=== PATIENT | male | born 1945 | race Caucasian/White ===

== ENCOUNTER 2024-05-17 07:59 | Day surgery (SDC) | payer MEDICARE, OTHER ==
[~2024-05-17 07:59] MED LIST: LIDOCAINE 1% (10MG/ML) FOR IV START INTRADERMA PRN
[2024-05-17] MEDS: IV FLUID CONTINUATION 1,000 ML IV ONE ×2 (09:08→14:30)
[2024-05-17 09:12] LABS: Glucose,Whole Blood 85 mg/dL (70-110)
[2024-05-17] MEDS: ONDANSETRON 4 MG/2 ML VIAL IVP ONE (09:23)
[2024-05-17] MEDS: ACETAMINOPHEN TAB 500 MG TAB PO PRN (09:23)
[2024-05-17] MEDS: DEXAMETHASONE SOD PHOSPHATE 4 MG/ML 1 ML VIAL IV ONE (09:23)
[2024-05-17] MEDS: LACTATED RINGERS 1,000 ML IV SCH (09:23)
[2024-05-17 09:26] LABS: African American GFR (CKD) >90 (>60 ml/min/1.73 sqM); Anion Gap 6 mmol/L; Blood Urea Nitrogen 10 mg/dL (9-20); Calcium 9.2 mg/dL (8.4-10.2); Carbon Dioxide 26 mmol/L (22-30); Chloride 108 mmol/L (98-107); Glucose 82 mg/dL (74-99); Non-African American GFR(CKD) 84 (>60 ml/min/1.73 sqM); Sodium 140 mmol/L (137-145)
[2024-05-17] MEDS: MIDAZOLAM 2 MG/2 ML VIAL IV ONE (09:33)
[2024-05-17 09:48] LABS: Potassium 3.8 mmol/L (3.5-5.1)
--- NOTE | 2024-05-17 09:50 | P.ANPRN ---
Procedure Note - Anesthesia - Nerve Block Performed Bilateral Erector Spinae Single Time Out Performed: Yes Date of Procedure: 05/17/24 Procedure Start Time: :32 Procedure Stop Time: 09:37 Location of Patient: PreOp Indication: Acute Post-Operative Pain, Analgesia, Requested by Surgeon Sedation Type: Sedate with meaningful contact maintained Preparation: Sterile Prep Position: Prone Catheter: None Needle Types: Pajunk Needle Gauge: 21 Ultrasound used to visualize needle placement: Yes Ultrasound used to observe medication spread: Yes Injectate: 0.5% Ropivacaine (see comment for volume) (Ropiv 20ml+[id number] level--Each side.) Blood Aspirated: No Pain Paresthesia on Injection Noted: No Resistance on Injection: Normal Image Stored and Saved: Yes Events: Uneventful and Well Tolerated
[2024-05-17] MEDS: HEPARIN SODIUM,PORCINE 5,000 UNIT/ML 1 ML VIAL SQ PRN (09:56)
[2024-05-17] MEDS ORDERED: LIDOCAINE 1% INJ 10MG/ML (20 ML MDV) ONE (10:00)
[2024-05-17] MEDS ORDERED: PROPOFOL 10 MG/ML 20 ML VIAL IV ONE (10:00)
[2024-05-17] MEDS ORDERED: NEOSTIGMINE 1 MG/ML 10 ML VIAL ONE (10:00)
[2024-05-17] MEDS ORDERED: KETAMINE HCL IN 0.9 % NACL 50 MG/5 ML SYRINGE ONE (10:00)
[2024-05-17] MEDS ORDERED: ROPIVACAINE 5 MG/ML 30 ML VIAL ONE (10:00)
[2024-05-17] MEDS ORDERED: DEXAMETHASONE SOD PHOSPHATE 4 MG/ML 1 ML VIAL ONE (10:00)
[2024-05-17] MEDS ORDERED: ROCURONIUM 10 MG/ML (5 ML VIAL) IV ONE (10:00)
[2024-05-17] MEDS ORDERED: fentaNYL (PF) 50 MCG/ML 2 ML AMP ONE (10:00)
[2024-05-17] MEDS ORDERED: KETOROLAC 15 MG/ML 1 ML VIAL ONE (10:00)
[2024-05-17] MEDS ORDERED: GLYCOPYRROLATE 0.2 MG/ML 2 ML VIAL ONE (10:00)
[2024-05-17] MEDS ORDERED: SUCCINYLCHOLINE CHLORIDE 200 MG/10 ML VIAL IV ONE (10:00)
[2024-05-17] MEDS: LIDOCAINE 2%-EPI 1:100,000 20 ML VIAL SQ ONE (10:09)
[2024-05-17] MEDS: LACTATED RINGERS 1,000 ML IV ONE (10:49)
--- NOTE | 2024-05-17 11:00 | P.OP ---
Date of Procedure: 05/17/24 Preoperative Diagnosis: incarcerated ventral hernia Postoperative Diagnosis: Incarcerated ventral hernia Procedure(s) Performed: Laparoscopic robotic repair of incarcerated ventral hernia Transversus abdominis plane block. Anesthesia: MAC Surgeon: Edmund Vidales Estimated Blood Loss (ml): 5 Pathology: none sent Condition: stable Disposition: PACU Operative Findings: 5 cm incarcerated ventral hernia located approximately 4 cm above umbilicus Description of Procedure: The patient was placed on the operating table in the supine position. He received general anesthesia. His abdomen was prepped and draped usual fashion. Using a 5 mm optical trocar under direct visualization the peritoneal cavity was entered in the left upper quadrant. The abdomen was then insufflated. The laparoscope was placed back into the perineal cavity. Next a 8 mm robotic trocar was placed in the left lower quadrant and a 12 mm robotic trocar was placed in the left lateral position. The original 5 mm trocar was exchanged for a 8 mm robotic trocar. A four-quadrant transversus abdominis plane block was performed 1% local Xylocaine. The patient's placed in the left side up position. And the patient was docked to the robot. The i control hernia was visualized. Using hook cautery the peritoneum over the incisional hernia was excised. The incarcerated mentum was reduced. The fascial opening was repaired using 0V LOC suture. Next a piece of 11 cm round ventral light ST mesh was placed into the. Cavity and secured with 2 OV lock suture. The patient was undocked the robot. The needles were retrieved. The fascia of the 12 mm trocar site was closed with 0 Ethibond suture. Skin was closed interrupted 3-0 Monocryl suture. Dermabond dressings was applied. Patient tolerated procedure well and was sent to recovery room stable condition.
[2024-05-17 11:12] VITALS: TEMP 97.4
[2024-05-17] MEDS: HYDROmorphone 0.5 MG/0.5 ML SYRINGE IVP PRN (11:15)
[2024-05-17 11:22] LABS: Glucose,Whole Blood 96 mg/dL (70-110)
[2024-05-17] MEDS: ACETAMINOPHEN TAB 325 MG TAB PO STA (12:52)
[2024-05-17] MEDS ORDERED: LACTATED RINGERS 1,000 ML BAG IV STA (14:17)
[2024-05-17 15:59] VITALS: BP 169/70; PULSE 58; RESP 20
== END 2024-05-17 16:01 | disposition home or self-care (01) ==
LOC: OR 07:59
PROVIDERS: ATTEND Surgery
DX: K43.6 Other and unspecified ventral hernia with obstruction, without gangrene (principal); G89.18 Other acute postprocedural pain; I25.2 Old myocardial infarction; I10 Essential (primary) hypertension; E78.5 Hyperlipidemia, unspecified; I25.10 Atherosclerotic heart disease of native coronary artery without angina pectoris; G47.33 Obstructive sleep apnea (adult) (pediatric); E11.9 Type 2 diabetes mellitus without complications; E07.9 Disorder of thyroid, unspecified; M19.90 Unspecified osteoarthritis, unspecified site; F41.9 Anxiety disorder, unspecified; F32.A Depression, unspecified; F03.90 Unspecified dementia, unspecified severity, without behavioral disturbance, psychotic disturbance, mood disturbance, and anxiety; Z85.038 Personal history of other malignant neoplasm of large intestine; Z99.89 Dependence on other enabling machines and devices; Z95.5 Presence of coronary angioplasty implant and graft; Z86.73 Personal history of transient ischemic attack (TIA), and cerebral infarction without residual deficits; Z79.4 Long term (current) use of insulin; Z90.49 Acquired absence of other specified parts of digestive tract; Z98.890 Other specified postprocedural states
CPT/HCPCS: 49594; S2900; 64999; 80048

== ENCOUNTER 2024-05-31 06:45 | Day surgery (SDC) | payer OTHER ==
[2024-05-25 11:14] VITALS: BMI 33.3
[2024-05-31] MEDS ORDERED: MIDAZOLAM 2 MG/2 ML VIAL IV PRN (07:00)
--- NOTE | 2024-05-31 07:28 | P.GSHP ---
History of Present Illness H&P Date: 05/31/24 CHIEF COMPLAINT: Colon screen HISTORY OF PRESENT ILLNESS: The patient is a 79-year-old male who presents for colon screen. Lower endoscopy was offered for further evaluation and management. PAST MEDICAL HISTORY: Please see list. PAST SURGICAL HISTORY: Please see list. MEDICATIONS: Please see list. ALLERGIES: Please see list. SOCIAL HISTORY: No illicit drug use FAMILY HISTORY: No reports of Crohn disease or ulcerative colitis. REVIEW OF ORGAN SYSTEMS: CONSTITUTIONAL: No reports of fevers or chills. PHYSICAL EXAM: VITAL SIGNS: Stable GENERAL: Well-developed pleasant in no acute distress. HEENT: No scleral icterus. Extraocular movements grossly intact. Moist buccal mucosa. NECK: Supple without lymphadenopathy. CHEST: Unlabored respirations. Equal bilateral excursions. CARDIOVASCULAR: Regular rate and rhythm. Distal 2+ pulses. ABDOMEN: Soft, nontender, nondistended. MUSCULOSKELETAL: No clubbing, cyanosis, or edema. ASSESSMENT: 1. Colon screen. PLAN: 1. Recommend proceeding with a lower endoscopy Past Medical History Past Medical History: Chest Pain / Angina, Dementia, Diabetes Mellitus, GERD/Reflux, Hyperlipidemia, Hypertension, Myocardial Infarction ([place]), Sleep Apnea/CPAP/BIPAP, Thyroid Disorder Additional Past Medical History / Comment(s): cpap doesn't use it Last Myocardial Infarction Date:: 2018 History of Any Multi-Drug Resistant Organisms: None Reported Past Surgical History: Back Surgery, Heart Catheterization With Stent, Hernia Repair, Tonsillectomy Additional Past Surgical History / Comment(s): thyroidectomy at 13, neck surgery, umbilical 2024, colonoscopy polyps, Past Anesthesia/Blood Transfusion Reactions: No Reported Reaction Additional Past Anesthesia/Blood Transfusion Reaction / Comment(s): no blood transfusion Date of Last Stent Placement:: 2018 Smoking Status: Former smoker - Past Family History Father History Unknown: Yes Medications and Allergies Home Medications Medication Instructions Recorded Confirmed Type Acetaminophen Tab [Tylenol] 650 mg PO Q6H #30 tab 05/17/24 05/25/24 Rx Aspirin [Adult Low Dose Aspirin EC] 81 mg PO DAILY 05/17/24 05/31/24 History Atorvastatin Calcium [Lipitor] 80 mg PO HS 05/17/24 05/25/24 History Clopidogrel [Plavix] 75 mg PO DAILY 05/17/24 05/31/24 History Docusate [Colace] 100 mg PO BID #20 capsule 05/17/24 05/25/24 Rx Donepezil HCl [Aricept ODT] 10 mg PO DAILY 05/17/24 05/25/24 History Empagliflozin/Metformin HCl 1 tab PO DAILY 05/17/24 05/25/24 History [Synjardy Xr 12.5-1,000 mg Tab] FLUoxetine HCL [PROzac] 10 mg PO DAILY 05/17/24 05/25/24 History Ferrous Sulfate [Feosol] 325 mg PO DAILY 05/17/24 05/25/24 History Furosemide [Lasix] 40 mg PO DAILY 05/17/24 05/25/24 History Gabapentin 300 mg PO BID 05/17/24 05/25/24 History Ibuprofen [Motrin] 600 mg PO Q6HR PRN #40 tab 05/17/24 05/25/24 Rx Insulin Glargine-Yfgn 44 units SQ HS 05/17/24 05/25/24 History Isosorbide Mononitrate [Isosorbide 30 mg PO DAILY 05/17/24 05/25/24 History Mononitrate ER] Levothyroxine Sodium [Synthroid] 125 mcg PO DAILY 05/17/24 05/25/24 History Losartan [Cozaar] 50 mg PO DAILY 05/17/24 05/25/24 History Pantoprazole Sodium [Protonix] 20 mg PO DAILY 05/17/24 05/25/24 History Potassium Chloride 60 meq PO DAILY 05/17/24 05/25/24 History allopurinoL [Zyloprim] 300 mg PO DAILY 05/17/24 05/25/24 History carvediloL [Coreg] 6.25 mg PO BID 05/17/24 05/25/24 History metOLazone [Zaroxolyn] 5 mg PO DIRECTED 05/17/24 05/25/24 History Allergies Allergy/AdvReac Type Severity Reaction Status Date / Time clarithromycin [From Biaxin] Allergy Swelling Verified 05/31/24 07:15 acetaminophen [From Tylox] AdvReac Unknown Verified 05/31/24 07:15 colestipol AdvReac Nausea & Verified 05/31/24 07:15 Vomiting gemfibrozil AdvReac Unknown Verified 05/31/24 07:15 morphine AdvReac Unknown Verified 05/31/24 07:15 oxycodone [From Tylox] AdvReac Unknown Verified 05/31/24 07:15 simvastatin [From Zocor] AdvReac Unknown Verified 05/31/24 07:15 sulfamethoxazole AdvReac Swelling Verified 05/31/24 07:15 [From Bactrim] trimethoprim [From Bactrim] AdvReac Swelling Verified 05/31/24 07:15
[2024-05-31 07:29] VITALS: RESP 16; TEMP 98.1
[2024-05-31] MEDS: LACTATED RINGERS 1,000 ML IV SCH (07:31)
[2024-05-31] MEDS: IV FLUID CONTINUATION 1,000 ML IV ONE (07:31)
[2024-05-31 07:32] LABS: Glucose,Whole Blood 79 mg/dL (70-110)
[2024-05-31] MEDS ORDERED: PROPOFOL 10 MG/ML 20 ML VIAL IV ONE (07:33)
[2024-05-31] MEDS ORDERED: LIDOCAINE 2% (PF) 20 MG/ML 5 ML VIAL ONE (07:33)
[2024-05-31] MEDS: LACTATED RINGERS 1,000 ML IV ONE (09:04)
[2024-05-31 09:16] LABS: Glucose,Whole Blood 80 mg/dL (70-110)
[2024-05-31 09:38] VITALS: BP 175/75; PULSE 49
--- NOTE | 2024-05-31 09:38 | P.PCN ---
Date of Procedure: 05/31/24 Description of Procedure: PREOPERATIVE DIAGNOSIS: Personal history of colon cancer Abnormal Cologuard POSTOPERATIVE DIAGNOSIS: Tubular adenomas hepatic flexure Tubular adenomas transverse colon Tubular adenomas ascending colon Tubular adenomas descending colon Tubular adenomas sigmoid colon OPERATION: Colonoscopy to the ileocecal valve and appendiceal orifice, cecum Colonoscopy with multiple hot snare polypectomy x 43 SURGEON: Jaelyn Horn MD. ANESTHESIA: MAC. INDICATIONS: The patient is an 79-year-old male who presents with personal history of colon cancer and now with positive Cologuard. Patient has dementia and medical records obtained per daughter. Benefits and risks were described and informed consent was obtained. DESCRIPTION OF PROCEDURE: The patient had undergone GoLytely prep. The patient had been brought into the operating room and laid in the left lateral decubitus position. After adequate intravenous sedation, the rectum was examined with 2% lidocaine jelly. The prostate was unremarkable. No external hemorrhoids were encountered. The rectal tone was within normal limits. No lesions were palpated in the rectal vault. An Olympus colonoscope was advanced until the cecum, ileocecal valve and appendiceal orifice were clearly viewed. The prep was good. No sigmoid diverticulosis was encountered. Multiple large villous including tubular adenomas were found and removed x 43. No focal colitis was found. Retroflexion of the scope demonstrated grade 1 internal hemorrhoids without active bleeding or inflammation. The colon was desufflated. The patient had tolerated the procedure well. Withdrawal time was over 6 minutes. FINDINGS: Aronchick preparation quality scale 2 (1-5) Internal hemorrhoids, grade 1 External hemorrhoids, grade 1. No arteriovenous malformations. No sigmoid diverticulosis Removal of 43 polyps: - Snare polypectomy ascending colon x 8, 5 to 12 mm tubulovillous adenoma. - Snare polypectomy hepatic flexure x 10, 4-14 mm flat villous adenoma - Snare polypectomy transverse colon x 24, 4 to 16 mm flat villous adenoma - Snare polypectomy descending colon x 6 with multiple foci near splenic flexure, 15 to 20 mm tubulovillous adenoma multiple passes - Snare polypectomy sigmoid colon x 3, 8 to 15 mm flat villous adenoma No focal colitis. RECOMMENDATIONS: Given severity of tubular adenomas, repeat colonoscopy 3 to 6 months, August to October 2024 Stop Plavix for at least 10 days due to multiple adenoma resection Plan - Discharge Summary Discharge Rx Participant: No New Discharge Prescriptions: Continue carvediloL [Coreg] 6.25 mg PO BID Furosemide [Lasix] 40 mg PO DAILY metOLazone [Zaroxolyn] 5 mg PO DIRECTED Pantoprazole Sodium [Protonix] 20 mg PO DAILY allopurinoL [Zyloprim] 300 mg PO DAILY Docusate [Colace] 100 mg PO BID #20 capsule Losartan [Cozaar] 50 mg PO DAILY Isosorbide Mononitrate [Isosorbide Mononitrate ER] 30 mg PO DAILY Aspirin [Adult Low Dose Aspirin EC] 81 mg PO DAILY Clopidogrel [Plavix] 75 mg PO DAILY Ferrous Sulfate [Iron (65 MG Elemental)] 325 mg PO DAILY Potassium Chloride 60 meq PO DAILY Levothyroxine Sodium [Synthroid] 125 mcg PO DAILY Atorvastatin Calcium [Lipitor] 80 mg PO HS Empagliflozin/Metformin HCl [Synjardy Xr 12.5-1,000 mg Tab] 1 tab PO DAILY Insulin Glargine-Yfgn 44 units SQ HS Donepezil HCl [Aricept ODT] 10 mg PO DAILY FLUoxetine HCL [PROzac] 10 mg PO DAILY Gabapentin 300 mg PO BID Acetaminophen Tab [Tylenol] 650 mg PO Q6H #30 tab Discontinued Ibuprofen [Motrin] 600 mg PO Q6HR PRN #40 tab PRN Reason: Pain Discharge Medication List Acetaminophen Tab [Tylenol] 650 mg PO Q6H #30 tab 05/17/24 [Rx] Aspirin [Adult Low Dose Aspirin EC] 81 mg PO DAILY 05/17/24 [History] Atorvastatin Calcium [Lipitor] 80 mg PO HS 05/17/24 [History] Clopidogrel [Plavix] 75 mg PO DAILY 05/17/24 [History] Docusate [Colace] 100 mg PO BID #20 capsule 05/17/24 [Rx] Donepezil HCl [Aricept ODT] 10 mg PO DAILY 05/17/24 [History] Empagliflozin/Metformin HCl [Synjardy Xr 12.5-1,000 mg Tab] 1 tab PO DAILY 05/17/24 [History] FLUoxetine HCL [PROzac] 10 mg PO DAILY 05/17/24 [History] Ferrous Sulfate [Iron (65 MG Elemental)] 325 mg PO DAILY 05/17/24 [History] Furosemide [Lasix] 40 mg PO DAILY 05/17/24 [History] Gabapentin 300 mg PO BID 05/17/24 [History] Insulin Glargine-Yfgn 44 units SQ HS 05/17/24 [History] Isosorbide Mononitrate [Isosorbide Mononitrate ER] 30 mg PO DAILY 05/17/24 [History] Levothyroxine Sodium [Synthroid] 125 mcg PO DAILY 05/17/24 [History] Losartan [Cozaar] 50 mg PO DAILY 05/17/24 [History] Pantoprazole Sodium [Protonix] 20 mg PO DAILY 05/17/24 [History] Potassium Chloride 60 meq PO DAILY 05/17/24 [History] allopurinoL [Zyloprim] 300 mg PO DAILY 05/17/24 [History] carvediloL [Coreg] 6.25 mg PO BID 05/17/24 [History] metOLazone [Zaroxolyn] 5 mg PO DIRECTED 05/17/24 [History] Follow up Appointment(s)/Referral(s): Jaelyn Horn MD [STAFF PHYSICIAN] - 06/13/24 3:00 pm Patient Instructions/Handouts: Colorectal Polyps (GEN) Activity/Diet/Wound Care/Special Instructions: Do not resume Plavix/clopidogrel until June 09. No sharp foods. Only soft foods. Avoid broccoli, nuts, etc. Will need repeat colonoscopy in 3 to 6 months by October 2024 Discharge Disposition: HOME SELF-CARE
== END 2024-05-31 10:02 | disposition home or self-care (01) ==
LOC: ORWHC2ENDO 06:45
PROVIDERS: ATTEND Surgery Plastic and Reconstructive Surgery
DX: D12.2 Benign neoplasm of ascending colon (principal); D12.3 Benign neoplasm of transverse colon; D12.4 Benign neoplasm of descending colon; D12.5 Benign neoplasm of sigmoid colon; E11.9 Type 2 diabetes mellitus without complications; E78.5 Hyperlipidemia, unspecified; F03.90 Unspecified dementia, unspecified severity, without behavioral disturbance, psychotic disturbance, mood disturbance, and anxiety; I10 Essential (primary) hypertension; I25.2 Old myocardial infarction; K21.9 Gastro-esophageal reflux disease without esophagitis; G47.33 Obstructive sleep apnea (adult) (pediatric); E03.9 Hypothyroidism, unspecified; Z79.02 Long term (current) use of antithrombotics/antiplatelets; Z79.4 Long term (current) use of insulin; Z79.82 Long term (current) use of aspirin; Z79.84 Long term (current) use of oral hypoglycemic drugs; Z79.890 Hormone replacement therapy; Z79.899 Other long term (current) drug therapy; Z85.038 Personal history of other malignant neoplasm of large intestine; Z86.0100 Personal history of colon polyps, unspecified; Z87.891 Personal history of nicotine dependence; Z88.1 Allergy status to other antibiotic agents; Z88.2 Allergy status to sulfonamides; Z88.5 Allergy status to narcotic agent; Z98.890 Other specified postprocedural states; Z99.89 Dependence on other enabling machines and devices; Z88.8 Allergy status to other drugs, medicaments and biological substances; Z91.018 Allergy to other foods; Z90.89 Acquired absence of other organs
CPT/HCPCS: 88305; 45385; J2704; J2003

== ENCOUNTER 2024-11-29 12:41 | Emergency (ER) | payer OTHER ==
--- NOTE | 2024-11-29 13:01 | ED ---
Fall HPI - General Chief Complaint: Fall Stated Complaint: Fall Time Seen by Provider: 11/29/24 12:46 Source: patient, EMS, RN notes reviewed Mode of arrival: EMS Limitations: no limitations - History of Present Illness Initial Comments: This is a 79-year-old male who presents to the emergency department for a fall. Patient currently lives at [facility]. He was in the shower on a shower chair when the chair broke, causing him to fall. They are unsure if he hit his head, however he does report some pain to the back of his head. They do not be lieve there was any loss of consciousness. He had previously been on Eliquis, however it is on hold due to problems with anemia per [facility]. Patient does complain of some pain to his left shoulder. MD Complaint: fall - Related Data Home Medications Medication Instructions Recorded Confirmed Aspirin [Adult Low Dose Aspirin EC] 81 mg PO DAILY 05/17/24 05/31/24 Atorvastatin Calcium [Lipitor] 80 mg PO HS 05/17/24 05/25/24 Clopidogrel [Plavix] 75 mg PO DAILY 05/17/24 05/31/24 Donepezil HCl [Aricept ODT] 10 mg PO DAILY 05/17/24 05/25/24 Empagliflozin/Metformin HCl 1 tab PO DAILY 05/17/24 05/25/24 [Synjardy Xr 12.5-1,000 mg Tab] FLUoxetine HCL [PROzac] 10 mg PO DAILY 05/17/24 05/25/24 Ferrous Sulfate [Iron (65 MG 325 mg PO DAILY 05/17/24 05/25/24 Elemental)] Furosemide [Lasix] 40 mg PO DAILY 05/17/24 05/25/24 Gabapentin 300 mg PO BID 05/17/24 05/25/24 Insulin Glargine-Yfgn 44 units SQ HS 05/17/24 05/25/24 Isosorbide Mononitrate [Isosorbide 30 mg PO DAILY 05/17/24 05/25/24 Mononitrate ER] Levothyroxine Sodium [Synthroid] 125 mcg PO DAILY 05/17/24 05/25/24 Losartan [Cozaar] 50 mg PO DAILY 05/17/24 05/25/24 Pantoprazole Sodium [Protonix] 20 mg PO DAILY 05/17/24 05/25/24 Potassium Chloride 60 meq PO DAILY 05/17/24 05/25/24 allopurinoL [Zyloprim] 300 mg PO DAILY 05/17/24 05/25/24 carvediloL [Coreg] 6.25 mg PO BID 05/17/24 05/25/24 metOLazone [Zaroxolyn] 5 mg PO DIRECTED 05/17/24 05/25/24 Previous Rx's Medication Instructions Recorded Acetaminophen Tab [Tylenol] 650 mg PO Q6H #30 tab 05/17/24 Docusate [Colace] 100 mg PO BID #20 capsule 05/17/24 Levofloxacin [Levaquin] 750 mg PO DAILY 5 Days #5 tab 11/29/24 Allergies Allergy/AdvReac Type Severity Reaction Status Date / Time clarithromycin [From Biaxin] Allergy Swelling Verified 11/29/24 12:52 acetaminophen [From Tylox] AdvReac Unknown Verified 11/29/24 12:52 colestipol AdvReac Nausea & Verified 11/29/24 12:52 Vomiting gemfibrozil AdvReac Unknown Verified 11/29/24 12:52 morphine AdvReac Unknown Verified 11/29/24 12:52 oxycodone [From Tylox] AdvReac Unknown Verified 11/29/24 12:52 simvastatin [From Zocor] AdvReac Unknown Verified 11/29/24 12:52 sulfamethoxazole AdvReac Swelling Verified 11/29/24 12:52 [From Bactrim] trimethoprim [From Bactrim] AdvReac Swelling Verified 11/29/24 12:52 Review of Systems ROS Statement: Those systems with pertinent positive or pertinent negative responses have been documented in the HPI. ROS Other: All systems not noted in ROS Statement are negative. Past Medical History Past Medical History: Cancer, CVA/TIA, Dementia, Diabetes Mellitus, Hyperlipidemia, Hypertension, Myocardial Infarction ([place]), Osteoarthritis ([place]), Sleep Apnea/CPAP/BIPAP, Thyroid Disorder Additional Past Medical History / Comment(s): colon cancer, ub=ncibckusive whether he's had stroke, doesn't use cpap Last Myocardial Infarction Date:: 2017? History of Any Multi-Drug Resistant Organisms: None Reported Past Surgical History: Appendectomy, Heart Catheterization With Stent Additional Past Surgical History / Comment(s): cardiac stents x6, thyroidectomy,neck surgery, Past Anesthesia/Blood Transfusion Reactions: No Reported Reaction Additional Past Anesthesia/Blood Transfusion Reaction / Comment(s): no blood transfusion Date of Last Stent Placement:: 2017? Past Psychological History: Anxiety, Depression Smoking Status: Never smoker Past Alcohol Use History: None Reported Past Drug Use History: None Reported - Past Family History Father History Unknown: Yes General Exam General appearance: alert, in no apparent distress Head exam: Present: atraumatic, normocephalic, normal inspection Eye exam: Present: normal appearance, PERRL, EOMI. Absent: scleral icterus, conjunctival injection, periorbital swelling Respiratory exam: Present: normal lung sounds bilaterally. Absent: respiratory distress, wheezes, rales, rhonchi, stridor Cardiovascular Exam: Present: regular rate, normal rhythm GI/Abdominal exam: Present: soft. Absent: distended, tenderness Extremities exam: Present: other (Mild tenderness to palpation over the left shoulder. Full range of motion. 2+ radial pulses) Neurological exam: Present: alert Skin exam: Present: warm, dry, intact, normal color. Absent: rash Course Vital Signs 11/29/24 11/29/24 12:44 16:46 Temperature 97.8 F 98.0 F Pulse Rate 57 L 60 Respiratory 18 19 Rate Blood Pressure 143/76 140/74 O2 Sat by Pulse 97 97 Oximetry Medical Decision Making - Medical Decision Making This is a 79-year-old male who presents to the emergency department for a fall. Was pt. sent in by a medical professional or institution? @ -No Did you speak to anyone other than the patient for history? @ -No Did you review nursing and triage notes? @ -Yes, and I agree, it is accurate with regards to the patient's symptoms. Were old charts reviewed? @ -No Differential Diagnosis? @ -Differential Musculoskeletal Muscular strain, contusion, ligament sprain, fracture, arthritis, septic arthritis, bursitis, cellulitis, muscle spasm, nerve compression, DVT, arterial occlusion, herpes zoster, electrolyte abnormality, tumor.... This is not meant to be in all inclusive list EKG interpreted by me (3pts min.)? @ -Not obtained X-rays interpreted by me (1pt min.)? @ -X-ray of the bilateral shoulders obtained. My interpretation identifies no acute fractures. Chest x-ray obtained. My interpretation identifies a right sided infiltrate. CT interpreted by me (1pt min.)? @ -Computed tomography scan of the brain and c-spine obtained. My interpretation identifies no evidence of an acute intracranial hemorrhage, skull fracture, or cervical spine fracture. CT scan of the facial bones obtained. My interpretation identifies no acute fractures. U/S interpreted by me (1pt. min.)? @ -Not obtained What testing was considered but not performed? (CT, X-rays, U/S, labs)? Why? @ -None What meds were considered but not given? Why? @ -None Did you discuss the management of the patient with other professionals? @ -No Did you reconcile home meds? @ -No Was smoking cessation discussed for >3mins.? @ -No Was critical care preformed (if so, how long)? @ -No Were there social determinants of health that impacted care today? How? (Homeles sness, low income, unemployed, alcoholism, drug addiction, transportation, low edu. Level, literacy, decrease access to med. care, custodial, rehab)? @ -No Was there de-escalation of care discussed even if they declined? (Discuss DNR or withdrawal of care, Hospice)? @ -No What co-morbidities impacted this encounter? (DM, HTN, Smoking, COPD, CAD, Cance r, CVA, Hep., AIDS, mental health diagnosis, sleep apnea, morbid obesity)? @ -Dementia, osteoarthritis Was patient admitted / discharged? @ -Discharged. Patient suffered a mechanical fall in the shower. CT scan of the brain/C-spine and facial bones obtained revealing no acute findings. X-ray of the bilateral shoulders was also unremarkable. On the chest x-ray they did note a patchy infiltrate in the right medial lung base and they advised correlation for developing pneumonia. Patient does report some coughing and congestion. Given his other comorbidities levofloxacin was prescribed for further management of potential pneumonia. Patient discharged home with daughter in stable condition. Case discussed with ED attending Dr. Ryan. Return precautions reviewed in depth, the patient is instructed to return to the emergency department with any new, worsening, or concerning symptoms. Patient verbalized understanding. Undiagnosed new problem with uncertain prognosis? @ -None Drug Therapy requiring intensive monitoring for toxicity (Heparin, Nitro, Insulin, Cardizem)? @ -None Were any procedures done? @ -None Diagnosis/symptom? @ -Fall, pneumonia Acute, or Chronic, or Acute on Chronic? @ -Acute Uncomplicated (without systemic symptoms) or Complicated (systemic symptoms)? @ -Uncomplicated Side effects of treatment? @ -None Exacerbation, Progression, or Severe Exacerbation] @ -Not applicable Poses a threat to life or bodily function? @ -No - Radiology Data Radiology results: report reviewed, image reviewed Disposition Clinical Impression: Fall, Pneumonia Disposition: HOME SELF-CARE Instructions (If sedation given, give patient instructions): Fall Prevention for Older Adults (ED), Pneumonia (ED) Additional Instructions: Return to the emergency department with any new, worsening, or concerning symptoms. Take the antibiotic as prescribed for 5 days. Take your first dose tomorrow since you received a dose in the emergency department today. Follow up with your primary care provider in 1-2 days. Prescriptions: Levofloxacin [Levaquin] 750 mg PO DAILY 5 Days #5 tab Is patient prescribed a controlled substance at d/c from ED?: No Referrals: Drake Lynn DO [Primary Care Provider] - 1-2 days Time of Disposition: 15:05
[2024-11-29] MEDS: ACETAMINOPHEN TAB 500 MG TAB PO STA (13:16)
--- NOTE | 2024-11-29 14:06 | CT ---
EXAMINATION TYPE: CT brain caroline wo con DATE OF EXAM: 11/29/2024 COMPARISON: None CLINICAL INDICATION: Male, 79 years old with history of Fall; PHH, Fall. TECHNIQUE: CT scan of the head and cervical spine are performed without contrast. CT DLP: Combined DLP of 1313.[address] CTDI: mGy Automated exposure control for dose reduction was used. Findings: Head CT: The examination is significantly limited by motion artifact. Ventricles, basal cisterns and sulci ove r convexities are moderately enlarged consistent with moderate atrophy. There is no mass effect or sh ift of midline structures. There is suggestion of encephalomalacia involving the right frontal lobe and left occipital lobe and possibly left parietal lobe as well indicating possibly remote cortical infarcts. There is no acute intra or extra-axial hemorrhage. Posterior fossa including the brainstem, fourth ventricle and cerebellar pontine angles are grossly n ormal. The intraorbital contents appear normal and symmetric. Visualized paranasal sinuses are well aerated. CT cervical spine: Craniovertebral junction relationships and prevertebral soft tissues are normal. There are postsurgical changes of fusion from C3 through C7. There is marked disc space narrowing and hypertrophic spurring at C7/T1 disc disease with marked dege nerative disease. C2-3 intervertebral discs is well preserved. The bony cervical canal is widely patent and there is no bony encroachment of the neural foramina. The paraspinal soft tissues unremarkable. IMPRESSION: 1. Head CT: No acute bleed or mass effect. Limited exam. 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 CT cervical spine: No acute trauma. Cervical fusion from C3 through C7. Marked degenerative diseas e at C7/T1 level. [facility], , 11/29/2024 2:03 PM
--- NOTE | 2024-11-29 14:08 | CT ---
EXAMINATION TYPE: CT facial bones wo con DATE OF EXAM: 11/29/2024 COMPARISON: CLINICAL INDICATION: Male, 79 years old with history of Fall; PHH, Fall. TECHNIQUE: CT scan of the sinuses is performed without contrast, axial images are obtained, coronal reformatted images are also reviewed. CT DLP: Combined DLP of 1313.[address] CTDI: mGy Automated exposure control for dose reduction was used. FINDINGS: There is no facial bone fractures. There are no air-fluid levels to suggest acute sinusitis or hemorr afua. There are mild chronic inflammatory changes in bases of both maxillary sinuses. Remaining paranasal s inuses are well aerated. The ostiomeatal complexes are patent. The mastoid air cells and middle ear cavities are well. IMPRESSION: 1. No evidence of acute facial bone trauma. 2. Mild chronic inflammatory changes in the maxillary sinuses. [facility], , 11/29/2024 2:06 PM
--- NOTE | 2024-11-29 14:38 | XR ---
EXAMINATION TYPE: XR chest 1V DATE OF EXAM: 11/29/2024 2:29 PM COMPARISON: None. CLINICAL INDICATION: Male, 79 years old with history of Fall, TECHNIQUE: XR chest 1V views of the chest are obtained. FINDINGS: Demonstrated are scattered senescent parenchymal change. Patchy infiltrate right medial lung base. Correlate for developing pneumonia. The heart is stable. Hilar and mediastinal structures are within normal limits. Degenerative changes are seen of the dorsal spine. IMPRESSION: 1. Patchy infiltrate right medial lung base. Correlate for developing pneumonia. [facility], , 11/29/2024 2:35 PM
--- NOTE | 2024-11-29 14:43 | XR ---
EXAMINATION TYPE: XR shoulder complete BILAT DATE OF EXAM: 11/29/2024 2:29 PM COMPARISON: None. CLINICAL INDICATION: Male, 79 years old with history of Fall, pain TECHNIQUE: XR shoulder complete BILAT views were obtained FINDINGS: There is no acute fracture/dislocation evident. The acromioclavicular and glenohumeral joint spaces appear moderately narrowing. The visualized ribs are intact and unremarkable. IMPRESSION: There is no acute fracture or dislocation. [facility], , 11/29/2024 2:41 PM
[2024-11-29] MEDS: LEVOFLOXACIN 750 MG TAB PO STA (15:17)
[2024-11-29 16:48] VITALS: BP 140/74; PULSE 60; RESP 19; TEMP 98
== END 2024-11-29 16:48 | disposition home or self-care (01) ==
LOC: EC 12:41
DX: J18.9 Pneumonia, unspecified organism (principal); M19.90 Unspecified osteoarthritis, unspecified site; F03.93 Unspecified dementia, unspecified severity, with mood disturbance; Z79.01 Long term (current) use of anticoagulants; Z88.1 Allergy status to other antibiotic agents; Z88.2 Allergy status to sulfonamides; Z88.5 Allergy status to narcotic agent; Z88.8 Allergy status to other drugs, medicaments and biological substances; W19.XXXA Unspecified fall, initial encounter; W07.XXXA Fall from chair, initial encounter
CPT/HCPCS: 70450; 70486; 71045; 72125; 99284